=== PATIENT | female | born 2000 | race Asian ===

== ENCOUNTER 2022-09-11 16:49 | Emergency (ER) | payer OTHER ==
[~2022-09-11] VITALS: Ht 172.7 cm; Wt 91.0 kg
[2022-09-11] MEDS ORDERED: ONDANSETRON HCL 4MG/2ML INJ IV STA (17:16)
[2022-09-11] MEDS ORDERED: SODIUM CHLORIDE 0.9% 1,000 ML IV ONE (17:30)
[2022-09-11 17:49] LABS: BASOPHILS % 0.6 % (0.0-2.0); EOSINOPHILS % 1.2 % (0.0-5.0); HEMOGLOBIN. 14.1 g/dL (12.0-16.0); LYMPHOCYTES % 23.6 % (20.0-50.0); MEAN CORPUSCULAR HEMOGLOBIN 27.4 pg (28.0-32.0); MEAN CORPUSCULAR VOLUME 83.9 fL (81.0-99.0); MEAN PLATELET VOLUME 8.3 fl (7.4-10.4); MONOCYTES % 5.5 % (2.0-8.0); NEUTROPHILS % 69.1 % (40.0-76.0); PLATELET 315 x1000/uL (130-400); RED BLOOD CELL COUNT 5.12 mill/uL (4.2-5.4); RED CELL DISTRIBUTION WIDTH 14.4 % (11.6-14.6)
[2022-09-11 18:00] LABS: CHLORIDE 109 mEq/L (98-107)
[2022-09-11] MEDS ORDERED: MORPHINE SULFATE 4 MG/ML CPJ (NOT FOR IM USE) IV STA (19:07)
[2022-09-11 21:16] LABS: CLARITY URINE CLEAR (CLEAR); COLOR URINE YELLOW (YELLOW); KETONES URINE 2+ (NEGATIVE); LEUKOCYTE ESTERASE URINE TRACE (NEGATIVE); NITRITE URINE NEGATIVE (NEGATIVE); OCCULT BLOOD URINE 3+ (NEGATIVE); PH URINE 6.5 (4.5-8.0); PROTEIN URINE TRACE (NEGATIVE); SPECIFIC GRAVITY URINE 1.019 (1.005-1.030); UROBILINOGEN URINE 0.2 E.U./dL (0.2-1.0)
[2022-09-11] MEDS ORDERED: IOHEXOL-300 100 ML BOTTLE ONE (21:41)
[2022-09-11] MEDS ORDERED: IBUP-2029 MT (22:07)
[2022-09-11] MEDS ORDERED: CEPH500C2 MT (22:07)
[2022-09-11 22:15] VITALS: BP 133/75
[2022-09-11] MEDS ORDERED: CEFTRIAXONE 1GM PREMIX 50 ML IV ONE (22:15)
[2022-09-11] MEDS ORDERED: KETOROLAC 15MG/ML VIAL IV ONE (22:15)
== END 2022-09-11 22:40 | disposition home or self-care (01) ==
LOC: ER 16:49
DX: R11.2 Nausea with vomiting, unspecified (principal); R10.32 Left lower quadrant pain
CPT/HCPCS: 36415; 74177; 80053; 81003; 81025; 83690; 85025; 96361; 96374; 96375; 99285; J2270; J2405; J7030; Q9967; Z7610